=== PATIENT | female | born 1935 ===

== ENCOUNTER 2020-10-04 16:35 | Observation (INO) ==
[2020-10-04 17:35] LABS: Basophils # 0.1 K/mcL (0.0-0.2); Basophils % 0.9 %; Eosinophils # 0.1 K/mcL (0.0-0.6); Eosinophils % 2.5 %; Hematocrit 36.2 % (35.3-44.9); Hemoglobin 11.1 g/dL (11.5-15.4); Immature Granulocytes % 0.2 % (0-4); Lymphocytes # 0.4 K/mcL (0.6-4.6); Mean Corpuscular HGB Conc 30.7 g/dL (31.6-35.5); Mean Corpuscular Hemoglobin 27.6 pg (28.0-33.3); Mean Platelet Volume 12.1 fL (9.4-12.4); Monocytes # 0.4 K/mcL (0.0-1.3); Monocytes % 6.8 %; Neutrophils # 4.4 K/mcL (1.6-8.9); Platelet Count 164 K/mcL (140-400); Red Blood Count 4.02 M/mcL (3.82-4.97); Red Cell Distribution Width 14.7 % (11.5-14.5); Segmented Neutrophils % 82.6 %; White Blood Count 5.3 K/mcL (4.3-11.1)
[2020-10-04 18:06] LABS: BUN/Creatinine Ratio 14 (6-26); Blood Urea Nitrogen 23 mg/dL (8-23); Calcium 8.7 mg/dL (8.6-10.3); Carbon Dioxide 25 mEq/L (23-29); Chloride 108 mEq/L (98-107); Glucose 161 mg/dL (70-105); Magnesium 1.9 mg/dL (1.6-2.6); Osmolality,Calculated 297 (280-300); Potassium 3.9 mEq/L (3.5-5.1); Sodium 140 mEq/L (136-145); eGFR For African Americans 34 (> 60); eGFR For Non-African Americans 28 (> 60)
[2020-10-04 18:13] LABS: Troponin I < 0.03 ng/mL (< 0.04)
[2020-10-04 18:51] LABS: Amorphous Sediment,Urine Few per hpf (None-Few); Bacteria,Urine Few per hpf (None-Few); Bilirubin,Urine Negative (Negative); Blood,Urine Negative (Negative); Clarity,Urine Turbid (Clear); Color,Urine Yellow (Yellow); Glucose,Urine (UA) Normal (Normal); Hyaline Casts,Urine Few per lpf (None Seen); Ketones,Urine Negative (Negative); Leukocyte Esterase,Urine Moderate (Negative); Mucus,Urine Few per lpf (None-Few); Nitrite,Urine Positive (Negative); PH,Urine 5.5 pH Units (5.0-8.0); Protein,Urine 100 mg/dL (Neg-Trace); RBC,Urine 0-3 per hpf (0-3); Specific Gravity,Urine 1.015 (1.010-1.025); Squamous Epithelial Cell,Urine Few per hpf (None-Few); Urobilinogen,Urine Normal (Normal); WBC,Urine 15-30 per hpf (0-3)
[2020-10-04] MEDS ORDERED: cefTRIAXone 1,000 MG in 0.9 % Sodium Chloride Mini Bag 100 ML IVPB ONE (18:56)
[2020-10-04] MEDS ORDERED: cefTRIAXone 1,000 MG in Water for inj. (sterile) 10 ML IVP ONE (19:09)
[2020-10-04] MEDS ORDERED: Naloxone 0.4 MG/ML INJ IVP PRN (19:18)
[2020-10-04] MEDS ORDERED: Ondansetron 4 MG/2 ML VIAL IVP PRN (19:18)
[2020-10-04] MEDS ORDERED: Acetaminophen 325 MG TABLET PO PRN (19:18)
[2020-10-04] MEDS ORDERED: Perflutren Lipid Microsphere 1.3 ML in 0.9 % Sodium Chloride 8.7 ML IVP PRN (20:01)
[2020-10-04] MEDS ORDERED: *HR* Labetalol 20 MG/4 ML SYRINGE IVP PRN (20:37)
[2020-10-04] MEDS: Ringers Solution, Lactated 1,000 ML IVC SCH (21:44)
[2020-10-04] MEDS: *HR* Heparin 5,000 UNIT/ML VIAL SQ SCH (21:45)
[2020-10-05 05:28] LABS: Basophils # 0.1 K/mcL (0.0-0.2); Basophils % 1.3 %; Eosinophils # 0.2 K/mcL (0.0-0.6); Eosinophils % 5.2 %; Hematocrit 31.2 % (35.3-44.9); Hemoglobin 9.6 g/dL (11.5-15.4); Immature Granulocytes % 0.2 % (0-4); Lymphocytes # 0.7 K/mcL (0.6-4.6); Lymphocytes % 15.7 %; Mean Corpuscular HGB Conc 30.8 g/dL (31.6-35.5); Mean Corpuscular Hemoglobin 27.4 pg (28.0-33.3); Mean Corpuscular Volume 88.9 fL (83.0-100.0); Monocytes # 0.5 K/mcL (0.0-1.3); Monocytes % 10.1 %; Platelet Count 143 K/mcL (140-400); Red Blood Count 3.51 M/mcL (3.82-4.97); Red Cell Distribution Width 14.9 % (11.5-14.5); Segmented Neutrophils % 67.5 %; White Blood Count 4.5 K/mcL (4.3-11.1)
[2020-10-05] MEDS: *HR* Heparin 5,000 UNIT/ML VIAL SQ SCH ×3 (05:35→19:30)
[2020-10-05] MEDS: Ringers Solution, Lactated 1,000 ML IVC SCH ×3 (05:38→22:57)
[2020-10-05 05:47] LABS: Calcium 8.3 mg/dL (8.6-10.3); Chol/HDL Ratio 3.1 (0-4.9); Magnesium 1.9 mg/dL (1.6-2.6); Phosphorous 3.5 mg/dL (2.7-4.5); Potassium 3.7 mEq/L (3.5-5.1)
[2020-10-05] MEDS ORDERED: Haloperidol Lactate 5 MG/ML VIAL IVP ONE (08:14)
[2020-10-05] MEDS ORDERED: cefTRIAXone 1,000 MG in Water for inj. (sterile) 10 ML IVP SCH (09:00)
[2020-10-05] MEDS ORDERED: QUEtiapine Fumarate 25 MG TABLET PO SCH (10:15)
[2020-10-05] MEDS: QUEtiapine Fumarate 25 MG TABLET PO SCH ×2 (10:43→19:30)
[2020-10-05] MEDS ORDERED: Haloperidol Lactate 5 MG/ML VIAL IVP PRN (15:10)
[2020-10-05] MEDS ORDERED: Ipratropium/Albuterol Neb 3 ML IH PRN (15:19)
[2020-10-05] MEDS: amLODIPine 5 MG TABLET PO SCH (16:11)
[2020-10-06] MEDS: Ringers Solution, Lactated 1,000 ML IVC SCH (04:10)
[2020-10-06] MEDS: *HR* Heparin 5,000 UNIT/ML VIAL SQ SCH (04:39)
[2020-10-06] MEDS: QUEtiapine Fumarate 25 MG TABLET PO SCH (07:48)
[2020-10-06] MEDS: amLODIPine 5 MG TABLET PO SCH (07:48)
[2020-10-06 09:33] VITALS: BP 137/68
[2020-10-06] MEDS ORDERED: amLODIPine 5 MG TABLET PO ONE (10:00)
[2020-10-06 10:43] LABS: Basophils # 0.1 K/mcL (0.0-0.2); Basophils % 1.6 %; Eosinophils # 0.2 K/mcL (0.0-0.6); Eosinophils % 4.9 %; Hematocrit 35.6 % (35.3-44.9); Immature Granulocytes % 0.3 % (0-4); Lymphocytes # 0.5 K/mcL (0.6-4.6); Lymphocytes % 14.2 %; Mean Corpuscular HGB Conc 30.9 g/dL (31.6-35.5); Mean Corpuscular Hemoglobin 27.8 pg (28.0-33.3); Mean Corpuscular Volume 90.1 fL (83.0-100.0); Monocytes # 0.2 K/mcL (0.0-1.3); Monocytes % 4.9 %; Neutrophils # 2.7 K/mcL (1.6-8.9); Platelet Count 149 K/mcL (140-400); Red Blood Count 3.95 M/mcL (3.82-4.97); Red Cell Distribution Width 14.8 % (11.5-14.5); Segmented Neutrophils % 74.1 %; White Blood Count 3.7 K/mcL (4.3-11.1)
[2020-10-06 11:03] LABS: Calcium 8.8 mg/dL (8.6-10.3); Potassium 3.7 mEq/L (3.5-5.1)
[2020-10-06 11:25] LABS: Folate 10.1 ng/mL (3.0-16.0)
[2020-10-07] MEDS ORDERED: amLODIPine 5 MG TABLET PO SCH (09:00)
== END 2020-10-06 11:50 | disposition home or self-care (01) ==
LOC: EMEROOARM 16:35 → 3BNU 16:35 → SUATTDRO 19:19 → 3BNU 20:10
PROVIDERS: ADMIT Internal Medicine; ATTEND Internal Medicine

== ENCOUNTER 2020-10-11 18:25 | Observation (INO) ==
[2020-10-11 19:17] LABS: INR 1.1; Prothrombin Time 12.9 Seconds (9.4-12.1)
[2020-10-11 19:20] LABS: Activated Partial Thrombo Time 29.3 Seconds (26.0-36.0)
[2020-10-11 19:26] LABS: Basophils # 0.1 K/mcL (0.0-0.2); Basophils % 1.2 %; Eosinophils # 0.2 K/mcL (0.0-0.6); Eosinophils % 3.1 %; Hematocrit 36.2 % (35.3-44.9); Hemoglobin 11.1 g/dL (11.5-15.4); Immature Granulocytes % 0.5 % (0-4); Lymphocytes # 0.4 K/mcL (0.6-4.6); Lymphocytes % 7.4 %; Mean Corpuscular HGB Conc 30.7 g/dL (31.6-35.5); Mean Corpuscular Hemoglobin 27.5 pg (28.0-33.3); Mean Corpuscular Volume 89.6 fL (83.0-100.0); Mean Platelet Volume 12.7 fL (9.4-12.4); Monocytes # 0.5 K/mcL (0.0-1.3); Monocytes % 7.8 %; Neutrophils # 4.6 K/mcL (1.6-8.9); Platelet Count 167 K/mcL (140-400); Red Blood Count 4.04 M/mcL (3.82-4.97); Red Cell Distribution Width 14.6 % (11.5-14.5)
[2020-10-11 19:26] LABS: Bilirubin,Urine Negative (Negative); Blood,Urine Negative (Negative); Clarity,Urine Clear (Clear); Color,Urine Light-Yellow (Yellow); Glucose,Urine (UA) Normal (Normal); Hyaline Casts,Urine Few per lpf (None Seen); Ketones,Urine Negative (Negative); Leukocyte Esterase,Urine Negative (Negative); Mucus,Urine Few per lpf (None-Few); Nitrite,Urine Negative (Negative); Protein,Urine 70 mg/dL (Neg-Trace); RBC,Urine 0-3 per hpf (0-3); Specific Gravity,Urine 1.016 (1.010-1.025); Squamous Epithelial Cell,Urine Few per hpf (None-Few); Urobilinogen,Urine Normal (Normal); WBC,Urine 0-3 per hpf (0-3)
[2020-10-11 19:27] LABS: Amphetamine Screen,Urine Negative ng/mL (Cutoff=1000); Barbiturate Screen,Urine Negative ng/mL (Cutoff=200); Benzodiazepines Screen,Urine Negative ng/mL (Cutoff=200); Cannabinoid Screen,Urine Negative ng/mL (Cutoff = 50); Cocaine Screen,Urine Negative ng/mL (Cutoff= 300); Opiate Screen,Urine Negative ng/mL (Cutoff=300); Phencyclidine Screen,Urine Negative ng/mL (Cutoff=25); White Blood Count 5.8 K/mcL (4.3-11.1)
[2020-10-11 19:38] LABS: Alanine Aminotransferase 14 Units/L (7-52); Albumin 4.1 g/dL (3.5-5.7); Albumin/Globulin Ratio 1.7 (1.1-2.2); Alkaline Phosphatase 84 Units/L (34-104); Aspartate Amino Transferase 31 Units/L (13-39); BUN/Creatinine Ratio 16 (6-26); Bilirubin,Direct 0.2 mg/dL (0.0-0.2); Bilirubin,Indirect 0.4 mg/dL (0.0-1.0); Bilirubin,Total 0.6 mg/dL (0.3-1.0); Blood Urea Nitrogen 30 mg/dL (8-23); Calcium 9.2 mg/dL (8.6-10.3); Carbon Dioxide 26 mEq/L (23-29); Chloride 106 mEq/L (98-107); Creatine Kinase 432 Units/L (30-223); Ethanol < 10 mg/dL (Less than 10); Globulin 2.4 g/dL (2.4-3.5); Glucose 98 mg/dL (70-105); Osmolality,Calculated 298 (280-300); Potassium 4.6 mEq/L (3.5-5.1); Sodium 141 mEq/L (136-145); Total Protein 6.5 g/dL (6.4-8.9); Troponin I 0.03 ng/mL (< 0.04); eGFR For African Americans 30 (> 60); eGFR For Non-African Americans 25 (> 60)
[2020-10-11 19:49] LABS: Thyroid Stimulating Hormone 2.201 mcIU/mL (0.340-5.600)
[2020-10-11] MEDS ORDERED: 0.9 % Sodium Chloride 1,000 ML IVC ONE (19:55)
[2020-10-11] MEDS ORDERED: Tdap (Boostrix) Vaccine 0.5 ML SYRINGE IM ONE (20:02)
[2020-10-11] MEDS ORDERED: Naloxone 0.4 MG/ML INJ IVP PRN (21:36)
[2020-10-11] MEDS ORDERED: Ondansetron ODT 4 MG TAB.RAPDIS SL PRN (21:36)
[2020-10-12] MEDS: 0.9 % Sodium Chloride 1,000 ML IVC SCH ×2 (00:02→11:45)
[2020-10-12 04:18] LABS: Basophils # 0.1 K/mcL (0.0-0.2); Basophils % 1.1 %; Eosinophils # 0.2 K/mcL (0.0-0.6); Hematocrit 36.6 % (35.3-44.9); Hemoglobin 11.3 g/dL (11.5-15.4); Immature Granulocytes % 0.4 % (0-4); Lymphocytes # 0.4 K/mcL (0.6-4.6); Lymphocytes % 5.4 %; Mean Corpuscular HGB Conc 30.9 g/dL (31.6-35.5); Mean Corpuscular Hemoglobin 27.9 pg (28.0-33.3); Mean Corpuscular Volume 90.4 fL (83.0-100.0); Mean Platelet Volume 11.8 fL (9.4-12.4); Monocytes # 0.5 K/mcL (0.0-1.3); Monocytes % 6.2 %; Neutrophils # 6.3 K/mcL (1.6-8.9); Platelet Count 166 K/mcL (140-400); Red Blood Count 4.05 M/mcL (3.82-4.97); Red Cell Distribution Width 14.6 % (11.5-14.5); Segmented Neutrophils % 84.9 %; White Blood Count 7.4 K/mcL (4.3-11.1)
[2020-10-12 04:22] LABS: INR 1.2; Prothrombin Time 13.5 Seconds (9.4-12.1)
[2020-10-12 04:39] LABS: Calcium 8.6 mg/dL (8.6-10.3); Magnesium 2.1 mg/dL (1.6-2.6); Phosphorous 3.4 mg/dL (2.7-4.5); Potassium 4.1 mEq/L (3.5-5.1)
[2020-10-12] MEDS: *HR* Labetalol 20 MG/4 ML SYRINGE IVP PRN (16:45)
[2020-10-13] MEDS ORDERED: Haloperidol Lactate 5 MG/ML VIAL IVP ONE (00:12)
[2020-10-13] MEDS ORDERED: *HR* LORazepam 2 MG/ML VIAL IVP ONE (00:39)
[2020-10-13 07:53] LABS: Basophils # 0.1 K/mcL (0.0-0.2); Basophils % 1.1 %; Eosinophils # 0.1 K/mcL (0.0-0.6); Eosinophils % 0.8 %; Hematocrit 35.7 % (35.3-44.9); Hemoglobin 11.1 g/dL (11.5-15.4); Immature Granulocytes % 0.3 % (0-4); Lymphocytes # 0.5 K/mcL (0.6-4.6); Lymphocytes % 6.8 %; Mean Corpuscular HGB Conc 31.1 g/dL (31.6-35.5); Mean Corpuscular Volume 90.2 fL (83.0-100.0); Mean Platelet Volume 12.6 fL (9.4-12.4); Monocytes # 0.3 K/mcL (0.0-1.3); Monocytes % 4.1 %; Neutrophils # 6.2 K/mcL (1.6-8.9); Platelet Count 186 K/mcL (140-400); Red Blood Count 3.96 M/mcL (3.82-4.97); Red Cell Distribution Width 14.7 % (11.5-14.5); Segmented Neutrophils % 86.9 %; White Blood Count 7.1 K/mcL (4.3-11.1)
[2020-10-13 08:08] LABS: Calcium 8.6 mg/dL (8.6-10.3); Magnesium 2.2 mg/dL (1.6-2.6); Phosphorous 3.6 mg/dL (2.7-4.5); Potassium 4.1 mEq/L (3.5-5.1)
[2020-10-13] MEDS ORDERED: QUEtiapine Fumarate 25 MG TABLET PO SCH (09:00)
[2020-10-13] MEDS ORDERED: amLODIPine 5 MG TABLET PO SCH (09:00)
[2020-10-13] MEDS: carvediloL 6.25 MG TABLET PO SCH ×3 (09:30→17:12)
[2020-10-13] MEDS: Aspirin 81 MG TAB.CHEW PO SCH ×2 (09:30→10:20)
[2020-10-13] MEDS: QUEtiapine Fumarate 25 MG TABLET PO SCH ×3 (09:30→20:55)
[2020-10-13] MEDS: NIFEdipine XL (24 HR) 60 MG TAB.ER.24 PO SCH ×2 (09:30→10:20)
[2020-10-13] MEDS: *HR* Labetalol 20 MG/4 ML SYRINGE IVP PRN (17:14)
[2020-10-14 07:21] LABS: Basophils # 0.1 K/mcL (0.0-0.2); Basophils % 1.5 %; Eosinophils # 0.1 K/mcL (0.0-0.6); Eosinophils % 2.3 %; Hematocrit 33.1 % (35.3-44.9); Hemoglobin 10.5 g/dL (11.5-15.4); Immature Granulocytes % 0.2 % (0-4); Lymphocytes # 0.7 K/mcL (0.6-4.6); Lymphocytes % 15.7 %; Mean Corpuscular HGB Conc 31.7 g/dL (31.6-35.5); Mean Corpuscular Hemoglobin 28.6 pg (28.0-33.3); Mean Corpuscular Volume 90.2 fL (83.0-100.0); Mean Platelet Volume 12.3 fL (9.4-12.4); Monocytes # 0.4 K/mcL (0.0-1.3); Monocytes % 7.4 %; Neutrophils # 3.4 K/mcL (1.6-8.9); Platelet Count 194 K/mcL (140-400); Red Blood Count 3.67 M/mcL (3.82-4.97); Red Cell Distribution Width 14.8 % (11.5-14.5); Segmented Neutrophils % 72.9 %; White Blood Count 4.7 K/mcL (4.3-11.1)
[2020-10-14] MEDS ORDERED: *HR* LORazepam Oral Conc 2 MG/ML SL PRN (08:26)
[2020-10-14] MEDS: Aspirin 81 MG TAB.CHEW PO SCH (09:00)
[2020-10-14] MEDS: QUEtiapine Fumarate 25 MG TABLET PO SCH ×2 (09:00→21:22)
[2020-10-14] MEDS: NIFEdipine XL (24 HR) 60 MG TAB.ER.24 PO SCH (09:00)
[2020-10-14] MEDS: carvediloL 6.25 MG TABLET PO SCH ×2 (09:00→17:43)
[2020-10-15 04:45] LABS: Basophils # 0.1 K/mcL (0.0-0.2); Eosinophils # 0.3 K/mcL (0.0-0.6); Eosinophils % 5.5 %; Hematocrit 34.1 % (35.3-44.9); Hemoglobin 10.9 g/dL (11.5-15.4); Immature Granulocytes % 0.4 % (0-4); Lymphocytes # 0.7 K/mcL (0.6-4.6); Mean Corpuscular Hemoglobin 28.1 pg (28.0-33.3); Mean Corpuscular Volume 87.9 fL (83.0-100.0); Mean Platelet Volume 11.9 fL (9.4-12.4); Monocytes # 0.4 K/mcL (0.0-1.3); Monocytes % 8.4 %; Neutrophils # 3.1 K/mcL (1.6-8.9); Platelet Count 170 K/mcL (140-400); Red Blood Count 3.88 M/mcL (3.82-4.97); Red Cell Distribution Width 14.7 % (11.5-14.5); Segmented Neutrophils % 68.7 %; White Blood Count 4.5 K/mcL (4.3-11.1)
[2020-10-15 04:55] LABS: Calcium 8.6 mg/dL (8.6-10.3); Magnesium 2.2 mg/dL (1.6-2.6); Potassium 3.7 mEq/L (3.5-5.1)
[2020-10-15] MEDS ORDERED: CloNIDine Patch 0.3 MG PATCH (WEEKLY) TD SCH (07:45)
[2020-10-15] MEDS: QUEtiapine Fumarate 25 MG TABLET PO SCH ×3 (10:01→21:35)
[2020-10-15] MEDS: carvediloL 6.25 MG TABLET PO SCH ×3 (10:01→23:10)
[2020-10-15] MEDS: Aspirin 81 MG TAB.CHEW PO SCH ×2 (10:01→10:08)
[2020-10-15] MEDS: NIFEdipine XL (24 HR) 60 MG TAB.ER.24 PO SCH (10:01)
[2020-10-16] MEDS: NIFEdipine XL (24 HR) 60 MG TAB.ER.24 PO SCH (08:13)
[2020-10-16] MEDS: carvediloL 6.25 MG TABLET PO SCH ×2 (08:13→16:09)
[2020-10-16] MEDS: QUEtiapine Fumarate 25 MG TABLET PO SCH ×2 (08:13→20:12)
[2020-10-16] MEDS: Aspirin 81 MG TAB.CHEW PO SCH (08:13)
[2020-10-17] MEDS ORDERED: Acetaminophen 325 MG TABLET PO PRN (06:31)
[2020-10-17] MEDS ORDERED: NIFEdipine XL (24 HR) 30 MG TAB.ER.24 PO SCH (09:00)
[2020-10-17] MEDS: carvediloL 6.25 MG TABLET PO SCH ×2 (09:28→16:25)
[2020-10-17] MEDS: QUEtiapine Fumarate 25 MG TABLET PO SCH ×2 (09:28→20:52)
[2020-10-17] MEDS: Aspirin 81 MG TAB.CHEW PO SCH (09:28)
[2020-10-17] MEDS ORDERED: carvediloL 6.25 MG TABLET PO SCH (17:00)
[2020-10-18] MEDS: Aspirin 81 MG TAB.CHEW PO SCH (08:32)
[2020-10-18] MEDS: QUEtiapine Fumarate 25 MG TABLET PO SCH ×2 (08:32→20:20)
[2020-10-19] MEDS: Aspirin 81 MG TAB.CHEW PO SCH (09:45)
[2020-10-19] MEDS: QUEtiapine Fumarate 25 MG TABLET PO SCH ×2 (09:45→19:52)
[2020-10-20] MEDS: QUEtiapine Fumarate 25 MG TABLET PO SCH (07:47)
[2020-10-20] MEDS: Aspirin 81 MG TAB.CHEW PO SCH (07:47)
[2020-10-20 15:47] VITALS: BP 120/54
[2020-10-20 16:52] LABS: Influenza A PCR Negative (Negative); Influenza B PCR Negative (Negative); Resp. Syncytial Virus PCR Negative (Negative); SARS-CoV-2 by PCR (In House) Negative (Negative)
== END 2020-10-20 17:33 ==
LOC: CDU 18:25 → EMEROOARM 18:25 → SUATTDRO 21:37 → CDU 23:16 → 3BNU 10-12 18:57
PROVIDERS: ADMIT Student in an Organized Health Care Education/Training Program; ATTEND Internal Medicine

== ENCOUNTER 2021-06-27 15:17 | Observation (INO) ==
[2021-06-27 16:19] LABS: Mean Corpuscular HGB Conc 30.8 g/dL (31.6-35.5); Mean Corpuscular Hemoglobin 27.8 pg (28.0-33.3); Mean Corpuscular Volume 90.3 fL (83.0-100.0); Mean Platelet Volume 11.8 fL (9.4-12.4); Platelet Count 251 K/mcL (140-400); Red Blood Count 4.32 M/mcL (3.82-4.97); Red Cell Distribution Width 16.3 % (11.5-14.5); White Blood Count 12.1 K/mcL (4.3-11.1)
[2021-06-27 16:48] LABS: Blood Urea Nitrogen > 130 mg/dL (8-23); Calcium 9.4 mg/dL (8.6-10.3); Carbon Dioxide 17 mEq/L (23-29); Chloride 110 mEq/L (98-107); Glucose 120 mg/dL (70-105); Potassium 6.4 mEq/L (3.5-5.1); Sodium 142 mEq/L (136-145); eGFR For African Americans 9 (> 60); eGFR For Non-African Americans 8 (> 60)
[2021-06-27] MEDS ORDERED: Calcium Gluconate 1,000 MG/10 ML VIAL IVP STA (17:59)
[2021-06-27] MEDS ORDERED: *HR* Dextrose 50 % in Water (Syg) 50 ML SYRINGE IVP ONE (17:59)
[2021-06-27] MEDS ORDERED: Insulin Human Regular 10 UNIT in 0.9 % Sodium Chloride 10 ML IV ONE (17:59)
[2021-06-27] MEDS ORDERED: 0.9 % Sodium Chloride 500 ML IVC ONE (19:20)
[2021-06-27] MEDS ORDERED: Naloxone 0.4 MG/ML INJ IVP PRN (19:48)
[2021-06-27] MEDS ORDERED: *HR* HYDROcodone/Acet 5/325 mg TABLET PO PRN ×2 (21:10)
[2021-06-27] MEDS ORDERED: Acetaminophen 325 MG TABLET PO PRN (21:10)
[2021-06-27] MEDS: 0.9 % Sodium Chloride 1,000 ML IVC SCH (22:22)
[2021-06-27] MEDS: QUEtiapine Fumarate 25 MG TABLET PO SCH (22:23)
[2021-06-27] MEDS ORDERED: 0.9 % Sodium Chloride 1,000 ML IVC ONE (22:31)
[2021-06-28 01:06] LABS: Basophils % 0.3 %; Eosinophils # 0.1 K/mcL (0.0-0.6); Eosinophils % 0.8 %; Hematocrit 28.8 % (35.3-44.9); Immature Granulocytes % 0.5 % (0-4); Lymphocytes # 0.4 K/mcL (0.6-4.6); Lymphocytes % 6.6 %; Mean Corpuscular HGB Conc 31.9 g/dL (31.6-35.5); Mean Corpuscular Hemoglobin 28.7 pg (28.0-33.3); Mean Corpuscular Volume 89.7 fL (83.0-100.0); Mean Platelet Volume 12.2 fL (9.4-12.4); Monocytes # 0.3 K/mcL (0.0-1.3); Monocytes % 4.7 %; Neutrophils # 5.7 K/mcL (1.6-8.9); Platelet Count 154 K/mcL (140-400); Red Blood Count 3.21 M/mcL (3.82-4.97); Red Cell Distribution Width 16.3 % (11.5-14.5); Segmented Neutrophils % 87.1 %; White Blood Count 6.5 K/mcL (4.3-11.1)
[2021-06-28 01:08] LABS: Bilirubin,Urine Negative (Negative); Blood,Urine Negative (Negative); Clarity,Urine Clear (Clear); Color,Urine Yellow (Yellow); Glucose,Urine (UA) Normal (Normal); Ketones,Urine Negative (Negative); Leukocyte Esterase,Urine Negative (Negative); Nitrite,Urine Negative (Negative); PH,Urine 5.5 pH Units (5.0-8.0); Protein,Urine Trace mg/dL (Neg-Trace); Urobilinogen,Urine Normal (Normal)
[2021-06-28 01:09] LABS: Hemoglobin 9.2 g/dL (11.5-15.4)
[2021-06-28 01:20] LABS: Sodium, Urine 22.7 mEq/L
[2021-06-28 01:33] LABS: Blood Urea Nitrogen > 130 mg/dL (8-23); Calcium 8.2 mg/dL (8.6-10.3); Carbon Dioxide 18 mEq/L (23-29); Chloride 117 mEq/L (98-107); Glucose 91 mg/dL (70-105); Potassium 4.9 mEq/L (3.5-5.1); Sodium 147 mEq/L (136-145); eGFR For African Americans 11 (> 60); eGFR For Non-African Americans 9 (> 60)
[2021-06-28 01:35] LABS: Magnesium 2.5 mg/dL (1.6-2.6)
[2021-06-28 01:36] LABS: Phosphorous 4.7 mg/dL (2.7-4.5)
[2021-06-28] MEDS ORDERED: 0.9 % Sodium Chloride 500 ML IVC ONE (02:59)
[2021-06-28] MEDS ORDERED: *HR* Heparin 5,000 UNIT/ML VIAL SQ SCH (06:00)
[2021-06-28] MEDS: 0.9 % Sodium Chloride 1,000 ML IVC SCH (06:55)
[2021-06-28] MEDS: Ringers Solution, Lactated 1,000 ML IVC SCH ×2 (08:40→17:11)
[2021-06-28] MEDS: QUEtiapine Fumarate 25 MG TABLET PO SCH ×3 (08:42→20:17)
[2021-06-28] MEDS ORDERED: *HR* LORazepam 2 MG/ML VIAL IM PRN (17:14)
[2021-06-28] MEDS ORDERED: Acetaminophen IV 500 MG/50 ML BAG IVPB SCH (17:15)
[2021-06-29] MEDS: QUEtiapine Fumarate 25 MG TABLET PO SCH (09:34)
[2021-06-29 11:55] VITALS: BP 182/77; PULSE 91; TEMP 97.9; O2SAT 97
[2021-07-01] MEDS ORDERED: CloNIDine Patch 0.3 MG PATCH (WEEKLY) TD SCH (09:00)
== END 2021-06-29 15:22 ==
LOC: EMEROOARM 15:17 → 2ANU 15:17 → SUATTDRO 18:38 → 2ANU 19:53
PROVIDERS: ADMIT Family Medicine; ATTEND Internal Medicine